=== PATIENT | female | born 1975 | race Two or more races ===

== ENCOUNTER 2017-06-26 11:17 | Emergency (ER) | payer OTHER, MEDICARE ==
[~2017-06-26] VITALS: Ht 162.6 cm; Wt 108.9 kg
[~2017-06-26 11:17] MED LIST: CARI350T; HYDR1TAB4
--- NOTE | 2017-06-26 11:20 | NUR ---
PT A/OX3, W/ "C/O SOB X 1 WK, I HAVE ASTHMA AND I DON'T HAVE MY INHALER", PT SPEAKS IN FULL SENTENCE, NAD. VSS RR EVEN AND UNLABROED. WILL CONT TO MONITOR
[2017-06-26] MEDS ORDERED: predniSONE 20 MG TABLET PO ONE (11:30)
[2017-06-26] MEDS ORDERED: IPRATROPIUM NEB FS 0.5 MG/2.5 ML AMPUL.NEB NEB ONE (11:30)
[2017-06-26] MEDS ORDERED: ALBUTEROL FS 2.5 MG/3 ML VIAL.NEB NEB ONE (11:30)
[2017-06-26] MEDS ORDERED: predniSONE 20 MG TABLET ONE (11:32)
[2017-06-26] MEDS ORDERED: ALBUTEROL FS 2.5 MG/3 ML VIAL.NEB ONE (11:35)
[2017-06-26] MEDS ORDERED: IPRATROPIUM NEB FS 0.5 MG/2.5 ML AMPUL.NEB ONE (11:36)
--- NOTE | 2017-06-26 13:18 | NUR ---
Patient discharged to home in stable condition. Written and verbal after care instructions given. Patient verbalizes understanding of instruction. Ambulatory with a steady gait. NAD. VS WNL.
[2017-06-26 13:20] VITALS: BP 120/70
== END 2017-06-26 13:21 | disposition home or self-care (01) ==
LOC: ER 11:19
DX: J45.901 Unspecified asthma with (acute) exacerbation (principal)
CPT/HCPCS: 94640; 99283; A4606; J7512; Z7610

== ENCOUNTER 2017-07-22 13:12 | Emergency (ER) | payer OTHER, MEDICARE ==
[~2017-07-22] VITALS: Ht 165.1 cm; Wt 103.0 kg
[2017-07-22] MEDS ORDERED: IPRATROPIUM NEB FS 0.5 MG/2.5 ML AMPUL.NEB ONE (13:50)
[2017-07-22] MEDS ORDERED: ALBUTEROL FS 2.5 MG/3 ML VIAL.NEB ONE (13:50)
--- NOTE | 2017-07-22 13:50 | NUR ---
RT AT BEDSIDE FOR BREATHING TX
[2017-07-22] MEDS ORDERED: IPRATROPIUM NEB FS 0.5 MG/2.5 ML AMPUL.NEB NEB ONE (14:00)
[2017-07-22] MEDS ORDERED: ALBUTEROL FS 2.5 MG/3 ML VIAL.NEB NEB ONE (14:00)
[2017-07-22 14:15] VITALS: BP 132/69
== END 2017-07-22 14:18 | disposition home or self-care (01) ==
LOC: ER 13:14
DX: R06.02 Shortness of breath (principal); J45.909 Unspecified asthma, uncomplicated
CPT/HCPCS: 94640 ×2; 99284; A4606; Z7610

== ENCOUNTER 2019-01-03 10:14 | Emergency (ER) | payer OTHER, MEDICARE ==
[~2019-01-03] VITALS: Ht 165.1 cm; Wt 104.8 kg
[2019-01-03] MEDS ORDERED: KETOROLAC TROMETHAMINE INJ 30 MG/ML VIAL IV ONE (12:00)
[2019-01-03] MEDS ORDERED: diphenhydrAMINE HCL 50 MG/ML VIAL IV ONE (12:00)
[2019-01-03] MEDS ORDERED: PROCHLORPERAZINE EDISYLATE 10 MG/2 ML VIAL IV ONE (12:00)
[2019-01-03] MEDS ORDERED: IV NS 0.9% 1,000 ML BAG IV ONE (12:00)
--- NOTE | 2019-01-03 12:00 | NUR ---
PT PRESENTED TO THE ER WITH A C/O MIGRAINE VALLADARES.
[2019-01-03] MEDS ORDERED: diphenhydrAMINE HCL 50 MG/ML VIAL ONE (12:15)
[2019-01-03] MEDS ORDERED: KETOROLAC TROMETHAMINE 15 MG/ML VIAL ONE (12:16)
[2019-01-03] MEDS ORDERED: PROCHLORPERAZINE EDISYLATE 10 MG/2 ML VIAL ONE (12:16)
[2019-01-03 14:14] VITALS: BP 124/76
--- NOTE | 2019-01-03 14:15 | NUR ---
IV removed. Catheter intact and site benign. Pressure and 4x4 applied to site. No bleeding noted. Patient discharged to home in stable condition. Written and verbal after care instructions given. Patient verbalizes understanding of instruction AND RX. PT AMBULATED OUT WITH A STEADY GAIT. VSS. PT IS TAKING A TAXI HOME.
== END 2019-01-03 13:22 | disposition home or self-care (01) ==
LOC: ER 10:17
DX: G43.909 Migraine, unspecified, not intractable, without status migrainosus (principal); J45.909 Unspecified asthma, uncomplicated; M06.9 Rheumatoid arthritis, unspecified; M79.7 Fibromyalgia
CPT/HCPCS: 96361; 96374; 96375; 99283; J0780; J1200; J7030; J1885